=== PATIENT | female | born 1975 | race Two or more races ===

== ENCOUNTER 2025-03-21 07:51 | Emergency (ER) | payer MEDICAID, OTHER ==
[~2025-03-21] VITALS: Ht 170.2 cm; Wt 79.5 kg
--- NOTE | 2025-03-21 08:34 | ED.PDOC ---
HPI Comments A 49 YEAR OLD FEMALE PRESENTS TO THE ED WITH COMPLAINT OF RIGHT EYEBROW LACERATION STATUS POST FALL. PATIENT STATES HE WAS EXERCISING AND HE ACCIDENTALLY FELL AND HIT HER RIGHT EYEBROW ON THE GROUND. PATIENT REPORTS SHE SUSTAINED A LACERATION TO HER RIGHT EYEBROW. BLEEDING IS CONTROLLED AT THIS TIME. PATIENT DENIES VISION CHANGES, NECK INJURY, LOC, FEVER, CHILLS, SHORTNESS OF BREATH, CHEST PAIN, ABDOMINAL PAIN, NAUSEA, VOMITING, HEADACHE, OR OTHER COMPLAINTS. NO OTHER SYMPTOMS OR MODIFYING FACTORS AT THIS TIME. PATIENT IS ALERT, ORIENTED X 4, AND HAS STEADY GAIT. Chief Complaint: Fall Injury Time Seen by MD: 08:07 Reviewed Notes: Nurses Notes, Medications, Allergies Allergies: Coded Allergies: NO KNOWN ALLERGIES (Unverified , 03/21/25) Information Source: Patient Mode of Arrival: EMS Severity: Moderate Severity of Laceration: Controlled Bleeding Complexity: Simple Timing: Hours Prehospital treatment: None Laceration Location: Head (RIGHT EYEBROW) Mechanism: Blunt Trauma, Fall Last Tetanus: UTD, Unknown Laceration Length (cm): 3 Skin Type: Irregular Depth of Injury: Skin, SQ Tendon Injury: 0% Capillary Refill: < 3 seconds Tender: Mild Discharge: None Erythema: None Associated Signs and Symptoms: None Past Medical History PAST MEDICAL HISTORY: Denies Surgical History: Denies all surgeries [employer] History: No Pertinent [employer] History Family History Family History: Reviewed,noncontributory to illness Social History Smoker: Non-Smoker Alcohol: Denies ETOH Use Drugs: Denies Drug Use Lives In: Home Constitutional: denies: chills, diaphoresis, fatigue, fever, malaise, sweats, weakness, others EENTM: denies: blurred vision, double vision, ear bleeding, ear discharge, ear drainage, ear pain, ear ringing, eye pain, eye redness, hearing loss, mouth pain, mouth swelling, nasal discharge, nose bleeding, nose congestion, nose pain, photophobia, tearing, throat pain, throat swelling, voice changes, others Respiratory: denies: cough, hemoptysis, orthopnea, SOB at rest, shortness of breath, SOB with excertion, stridor, wheezing, others Cardiovascular: denies: chest pain, dizzy spells, diaphoresis, Dyspnea on exertion, edema, irregular heart beat, left arm pain, lightheadedness, palpitations, PND, syncope, others Gastrointestinal: denies: abdomen distended, abdominal pain, blood streaked bowels, constipated, diarrhea, dysphagia, difficulty swallowing, hematemesis, melena, nausea, poor appetite, poor fluid intake, rectal bleeding, rectal pain, vomiting, others Genitourinary: denies: abnormal vagina bleeding, burning, dyspareunia, dysuria, flank pain, frequency, hematuria, incontinence, pain, , vagina discharge, urgency, others Neurological: denies: dizziness, fainting, headache, left sided numbness, left sided weakness, numbness, paresthesia, pre-existing deficit, right sided numbness, right sided weakness, seizure, speech problems, tingling, tremors, weakness, others Musculoskeletal: denies: back pain, gout, joint pain, joint swelling, muscle pain, muscle stiffness, neck pain, others Integumetry: reports: laceration (LACERATION OF RIGHT EYEBROW); denies: bruises, change in color, change in hair/nails, dryness, lesions, lumps, rash, wounds, others Allergic/Immunocompromised: denies: Difficulty Healing, Frequent Infections, Hives, Itching, others Hematologic/Lymphatic: denies: anemia, blood clots, easy bleeding, easy bruising, swollen glands, others Endocrine: denies: excessive hunger, excessive sweating, excessive thirst, excessive urination, flushing, intolerance to cold, intolerance to heat, unexplained weight gain, unexplained weight loss, others Psychiatric: denies: anxiety, bipolar disorder, depression, hopeless, panic disorder, schizophrenia, sleepless, suicidal, others All Other Systems: Reviewed and Negative Physical Exam General Appearance: No Apparent Distress, Normal HEENT: Head (NO CONTUSIONS AND HEMATOMA ON RIGHT EYEBROW, NO BONY TENDERNESS AND DEFORMITY. ), Normal ENT Inspection, PERRL/EOMI, Pharynx Normal, TMs Normal Neck: Full Range of Motion, Non-Tender, Normal, Normal Inspection Respiratory: Chest Non-Tender, Lungs Clear, No Accessory Muscle Use, No Respiratory Distress, Normal Breath Sounds Cardiovascular: No Edema, No JVD, No Murmur, No Gallop, Normal Peripheral Pulses, Regular Rate/Rhythm Breast Exam: Deferred Gastrointestinal: No Organomegaly, Non Tender, No Pulsatile Mass, Normal Bowel Sounds, Soft Genitalia: Deferred Pelvic: Deferred Rectal: Deferred Extremities: No calf tenderness, Normal capillary refill, Normal inspection, Normal range of motion, Non-tender, No pedal edema Musculoskeletal : Apperance: Normal Neurologic: Alert, blanket maker II-XII nml as Tested, No Motor Deficits, Normal Affect, Normal Mood, No Sensory Deficits Cerebellar Function: Normal Reflexes: Normal Skin: Dry, Lacerations (3CM IRREGULAR LACERATION OPN RIGHT EYEBROW, NO BLEEDING AND FB. ), Normal Color, Warm Peripheral Pulses: 2+ carotid (R), 2+ carotid (L) Lymphatic: No Adenopathy Was a procedure done? Was a procedure done?: Yes Sedation Sedation?: No Laceration Repair : Location RIGHT EYEBROW Length 3CM Anesthetic: Lidocaine, Without epi Laceration Repair Prep: Saline, by Irrigation Laceration Repair Wound Comple: epidermis/dermis repair Laceration Repair: Number of sutures (6), Skin, SQ, Size (4-0 ETHILON), Nylon, Simple, Gauze Informed consent obtained: No Risks, benefits, and alternati: Yes Images 1 - Differential diagnosis Generic Laceration: Abrasion/Contusion, Laceration, Avulsion Differential Diagnosis: N/A X-Ray, Labs, Meds, VS Vital Signs Date Time Temp Pulse Resp B/P (MAP) Pulse Ox O2 Delivery O2 Flow Rate FiO2 03/21/25 07:51 98.1 97 16 163/115 98 98.1 COMPUTERIZED TOMOGRAPHY OF THE HEAD WITHOUT CONTRAST REASON FOR STUDY: FALL COMPARISON: None TECHNIQUE: Helical tomographic scans were obtained through the brain. 2-D coronal and sagittal reformatted images are provided. Radiation optimization: All CT scans at this facility use at least one of these dose optimization techniques: Automated exposure control mA and/or kV adjustment per patient size (includes targeted exams where dose is matched to clinical indication) or iterative reconstruction. RADIATION DOSE: CTDI: 62.47 mGy DLP: 1105.91 mGy-cm FINDINGS: No suspicious intracranial hyperdensity to suggest acute blood. There is no mass effect nor midline shift. There is no hydrocephalus. The suprasellar cistern is intact. The calvarium is intact. There is a tiny retention cyst versus polyp in the left maxillary sinus. The visualized mastoid air cells and paranasal sinuses are otherwise clear. IMPRESSION: No acute intracranial abnormality. ATED BY: ELIUD GOVEA MD DICTATED DATE/TIME: 03/21/25845 SIGNED BY: ELIUD GOVEA MD SIGNED DATE/TIME: 03/21/25845 CC: X-Ray, Labs, Meds, VS Comment EXTERNAL MEDICAL RECORDS REVIEWED: [NONE] INDEPENDENT HISTORIANS: [NONE] SOCIAL DETERMINANTS OF HEALTH: [NONE] LABS ORDERED: NONE REVIEWED AND INTERPRETED RESULTS: NONE IMAGING ORDERED: CT BRAIN TREATMENTS ORDERED: LACERATION REPAIR, SEE PROCEDURE SECTION. PROCEDURES PERFORMED: LACERATION REPAIR, SEE PROCEDURE SECTION. CRITICAL CARE TIME: NONE I HAVE DISCUSSED THE PATIENT WITH THE ATTENDING PHYSICIAN DR. BAILEY AND HE AGREES WITH THE PATIENT'S PLAN OF CARE AND DISPOSITION. BASED ON HISTORY OF PRESENT ILLNESS, AND PHYSICAL EXAM, PATIENT WILL BE DISCHARGED HOME. DISCUSSED PLAN FOR DISCHARGE HOME WITH RX []. MEDICATION WARNINGS GIVEN. SHARED DECISION MAKING: DISCUSSED WITH PATIENT THAT THEIR WORKUP WAS NORMAL. PATIENT INSTRUCTED TO FOLLOW UP WITH PRIMARY CARE PROVIDER IN 1-2 DAYS FOR RE- EVALUATION OF SYMPTOMS. PATIENT VERBALIZES UNDERSTANDING TO RETURN TO ED FOR NEW OR WORSENING SYMPTOMS OR IF FOLLOW UP WITH PCP CANNOT BE OBTAINED. PATIENT FEELS COMFORTABLE GOING HOME AT THIS TIME. ALL QUESTIONS ADDRESSED AT TIME OF DISCHARGE. Images Reviewed?: Images reviewed and evaluated by me Time of 1ST Reevaluation: 09:10 Reevaluation 1ST: Improved Patient Education/Counseling: Diagnosis, Treatment, Need For Follow Up Family Education/Counseling: Diagnosis, Treatment, Need For Follow Up Medical Screening: No EMC Exist At This Time Departure 1 Departure Time of Disposition: 09:10 Impression: Primary Impression: Laceration of right eyebrow Qualified Codes: S01.111A - Laceration without foreign body of right eyelid and periocular area, initial encounter Additional Impression: Status post fall Disposition: 01 HOME / SELF CARE / HOMELESS Condition: Stable Additional Instructions: FOLLOW-UP WITH PCP IN 1 TO 2 DAYS. TAKE MEDICATIONS PRESCRIBED. RETURN TO ED FOR ANY NEW OR WORSENING SYMPTOMS. Discharged With: Self, Relative Critical Care Note Critical Care Time?: No Stability Stability form required: No I personally scribed for DILCAI POND ([email or web address]) on 03/21/25 at 08:34. Electronically submitted by zO Bell ([email or web address]). I personally scribed for DILCIA POND ([email or web address]) on 03/21/25 at 08:52. Electronically submitted by Oz Bell ([email or web address]). DILCIA POND Mar 21, 2025 08:34
--- NOTE | 2025-03-21 08:49 | DVH ---
COMPUTERIZED TOMOGRAPHY OF THE HEAD WITHOUT CONTRAST REASON FOR STUDY: FALL COMPARISON: None TECHNIQUE: Helical tomographic scans were obtained through the brain. 2-D coronal and sagittal reformatted images are provided. Radiation optimization: All CT scans at this facility use at least one of these dose optimization techniques: Automated exposure control mA and/or kV adjustment per patient size (includes targeted exams where dose is matched to clinical indication) or iterative reconstruction. RADIATION DOSE: CTDI: 62.47 mGy DLP: 1105.91 mGy-cm FINDINGS: No suspicious intracranial hyperdensity to suggest acute blood. There is no mass effect nor midline shift. There is no hydrocephalus. The suprasellar cistern is intact. The calvarium is intact. There is a tiny retention cyst versus polyp in the left maxillary sinus. The visualized mastoid air cells and paranasal sinuses are otherwise clear. IMPRESSION: No acute intracranial abnormality.
[2025-03-21 09:18] VITALS: BP 153/105; PULSE 97; RESP 16; TEMP 98.1; O2SAT 98
== END 2025-03-21 09:21 | disposition home or self-care (01) ==
LOC: ER 07:51 → EDBD 07:51 → ER 09:20
DX: S01.111A Laceration without foreign body of right eyelid and periocular area, initial encounter (principal); R42 Dizziness and giddiness; W19.XXXA Unspecified fall, initial encounter; Y93.89 Activity, other specified; Y92.89 Other specified places as the place of occurrence of the external cause; Y99.8 Other external cause status
CPT/HCPCS: 12052; 70450; 99284; A4649